=== PATIENT | male | born 1945 | race Caucasian/White ===

== ENCOUNTER 2018-06-30 10:18 | Inpatient (IN) | payer OTHER ==
[~2018-06-30] VITALS: Ht 170.2 cm; Wt 101.2 kg
[2018-07-04] MEDS ORDERED: COZAAR25 MG PO (10:32)
== END 2018-07-10 16:10 | disposition home or self-care (01) | DRG 394 ==
LOC: EDSTATUS 07-04 09:00 → ADM 07-04 09:00 → O/R 07-09 07:15 → SURG 07-09 07:15 → SURH 07-09 09:00 → SURG 07-09 13:02
PROVIDERS: ADMIT Colon & Rectal Surgery
PROC: 0DBP8ZZ Excision of Rectum, Via Natural or Artificial Opening Endoscopic (ICD-10-PCS; principal; 2018-07-09 09:15)
DX: K62.1 Rectal polyp (principal); C20 Malignant neoplasm of rectum; K92.1 Melena; I10 Essential (primary) hypertension

== ENCOUNTER → 2019-10-02 06:00 | Outpatient (CLI) | payer OTHER ==
[~2019-10-02 06:00] MED LIST: COZAAR25 MG PO
== END | disposition home or self-care (01) ==
LOC: ADM 09-28 12:15 → LAB 06:00 → ADM 12:15 → AMB-ENDOS 12:15 → EDSTATUS 12:15
PROVIDERS: ATTEND Colon & Rectal Surgery
DX: U07.1 COVID-19 (principal); C20 Malignant neoplasm of rectum; Z85.048 Personal history of other malignant neoplasm of rectum, rectosigmoid junction, and anus; Z86.010 Personal history of colon polyps; K92.1 Melena

== ENCOUNTER 2024-07-07 09:45 | Inpatient (IN) | payer OTHER ==
[~2024-07-07] VITALS: Ht 170.2 cm; Wt 102.1 kg
[2024-07-07] MEDS ORDERED: ENTRESTO 24 MG1 EACH PO (10:51)
[2024-07-07 10:52] VITALS: BP 170/77
[2024-07-07 11:21] VITALS: BP 153/69
[2024-07-15] MEDS ORDERED: HEMOSTATIC MATRIX 1 KIT KIT TOP ONE (06:55)
[2024-07-15] MEDS ORDERED: CEFTRIAXONE SODIUM 2,000 MG VIAL ONE (06:55)
[2024-07-15] MEDS ORDERED: DIBUCAINE 30 GM TUBE ONE (06:55)
[2024-07-15] MEDS ORDERED: LIDOCAINE HCL 1%/EPINEPHRINE 20ML VIAL IJ ONE (06:55)
[2024-07-15] MEDS ORDERED: POVIDONE-IODINE 118 ML BOTT TOP ONE (06:55)
[2024-07-15] MEDS ORDERED: METRONIDAZOLE/SODIUM CHLORIDE 500 MG/100 ML PIGGYBACK IV ONE (06:55)
[2024-07-15] MEDS ORDERED: BUPIVACAINE HCL/MPF 0.5% 30ML VIAL ONE (06:55)
[2024-07-15] MEDS ORDERED: OxyCODONE HCL 5 MG TABLET (ROXICODONE) PO PRN (09:15)
[2024-07-15] MEDS ORDERED: MORPHINE SULFATE 4 MG/ML CARTRIDGE IV PRN (09:15)
[2024-07-15] MEDS ORDERED: DEXTROSE 50 % IN WATER 0.5 G/ML VIAL IV PRN (09:15)
[2024-07-15] MEDS ORDERED: ONDANSETRON HCL 2 MG/ML VIAL IV PRN (09:15)
[2024-07-15] MEDS ORDERED: RINGERS SOLUTION,LACTATED 1,000 ML IV SCH (09:15)
[2024-07-15] MEDS ORDERED: ZOLPIDEM TARTRA10 MG (10:02)
[2024-07-15 10:52] LABS: BASO % 0.5 % (0.1-1.2); EOS # 0.07 (0.04-0.54); EOS % 1.2 % (0.7-7.0); HEMOGLOBIN 12.9 g/dL (13.7-17.5); LYMPH # 1.09 (1.18-3.74); LYMPH % 18.9 % (19.3-53.1); MEAN CORPUSCULAR HEMOGLOBIN 30.1 pg (25.6-32.2); MONO # 0.52 (0.24-0.82); NEUT # 4.03 (1.56-6.13); NEUT % 70.1 % (34.0-71.1); PLATELET COUNT 180 K/uL (163-369); RED BLOOD COUNT 4.29 M/uL (4.63-6.08); RED CELL DISTRIBUTION WIDTH 12.9 % (11.6-14.4)
[2024-07-15 12:11] VITALS: BP 153/69; O2SAT 95
[2024-07-15] MEDS ORDERED: HYOSCYAMINE SULFATE 0.125 MG TAB.SUBL SL SCH (13:00)
[2024-07-15] MEDS ORDERED: SIMETHICONE 125 MG CAPSULE PO SCH (13:00)
[2024-07-15] MEDS ORDERED: ACETAMINOPHEN 500 MG GEL..CAP PO SCH (14:00)
[2024-07-15 16:00] VITALS: BP 148/78; O2SAT 95
[2024-07-15] MEDS ORDERED: GABAPENTIN 300 MG CAPSULE PO SCH (17:00)
[2024-07-15] MEDS ORDERED: POLYETHYLENE GLYCOL 3350 17 GM BLIST.PACK PO SCH (17:00)
[2024-07-15] MEDS ORDERED: CELECOXIB 200 MG CAPSULE PO SCH (17:00)
[2024-07-15] MEDS ORDERED: METOCLOPRAMIDE HCL 5 MG/ML VIAL IV SCH (17:00)
[2024-07-15] MEDS ORDERED: FAMOTIDINE/PF 20 MG/2 ML VIAL IV PUSH SCH (21:00)
[2024-07-15 23:41] VITALS: BP 149/72; O2SAT 100
[2024-07-16 06:49] LABS: ALBUMIN 3.1 gm/dL (3.4-5.0); CALCIUM 8.7 mg/dL (8.5-10.1); CREATININE SERUM 0.87 mg/dL (0.70-1.30); GFR 84.65; MAGNESIUM 2.1 mg/dL (1.8-2.4); PHOSPHOROUS 3.9 mg/dL (2.5-4.9); POTASSIUM 4.66 mEq/L (3.5-5.1)
[2024-07-16 06:58] LABS: BASO % 0.4 % (0.1-1.2); EOS # 0.05 (0.04-0.54); EOS % 0.6 % (0.7-7.0); HEMATOCRIT 41.1 % (40.1-51.0); HEMOGLOBIN 13.5 g/dL (13.7-17.5); LYMPH # 0.93 (1.18-3.74); LYMPH % 10.2 % (19.3-53.1); MEAN CORPUSCULAR HEMOGLOBIN 31.3 pg (25.6-32.2); MONO % 9.9 % (4.7-12.5); NEUT # 7.15 (1.56-6.13); NEUT % 78.7 % (34.0-71.1); PLATELET COUNT 187 K/uL (163-369); RED BLOOD COUNT 4.32 M/uL (4.63-6.08); RED CELL DISTRIBUTION WIDTH 12.9 % (11.6-14.4)
[2024-07-16 08:00] VITALS: BP 144/69; O2SAT 94
[2024-07-16] MEDS ORDERED: LACTULOSE 20 G/30 ML BLIST.PACK PO SCH (09:00)
[2024-07-16] MEDS ORDERED: LACTOBACILLUS ACIDOPHILUS 1 CAP CAP PO SCH (09:00)
[2024-07-16 16:23] VITALS: BP 139/67; O2SAT 95
[2024-07-16] MEDS ORDERED: ENOXAPARIN SODIUM 40 MG/0.4 ML SYRINGE SUBCUTANEO SCH (17:00)
[2024-07-17] MEDS ORDERED: ENOXAPARIN SODIUM 40 MG/0.4 ML SYRINGE SUBCUTANEO SCH (09:00)
== END 2024-07-16 18:23 | disposition home or self-care (01) | DRG 376 ==
LOC: SURG 07-15 05:38 → O/R 07-15 05:38 → SURH 07-15 09:45 → SURG 07-15 11:31
PROVIDERS: ADMIT Colon & Rectal Surgery; ATTEND Colon & Rectal Surgery
PROC: 0DBP8ZZ Excision of Rectum, Via Natural or Artificial Opening Endoscopic (ICD-10-PCS; principal; 2024-07-15 11:00)
DX: C20 Malignant neoplasm of rectum (principal)
CPT/HCPCS: 0184T; 45123

== ENCOUNTER 2024-11-25 11:45 | Inpatient (IN) | payer OTHER ==
[~2024-11-25] VITALS: Ht 170.2 cm; Wt 98.4 kg
[~2024-11-25 11:45] MED LIST changes: +ENTRESTO 24 MG1 EACH PO; +ZOLPIDEM TARTRA10 MG
[2024-11-27] MEDS ORDERED: COZAAR100 MG PO (13:02)
[2024-12-01] MEDS ORDERED: BUPIVACAINE HCL/MPF 0.5% 30ML VIAL ONE (12:35)
[2024-12-01] MEDS ORDERED: LIDOCAINE HCL 1%/EPINEPHRINE 20ML VIAL IJ ONE (12:35)
[2024-12-01] MEDS ORDERED: CEFTRIAXONE SODIUM 2,000 MG VIAL ONE (12:45)
[2024-12-01] MEDS ORDERED: METRONIDAZOLE/SODIUM CHLORIDE 500 MG/100 ML PIGGYBACK IV ONE (12:45)
[2024-12-01] MEDS ORDERED: POVIDONE-IODINE 118 ML BOTT TOP ONE (15:16)
[2024-12-01] MEDS ORDERED: OxyCODONE HCL 5 MG TABLET (ROXICODONE) PO PRN (17:15)
[2024-12-01] MEDS ORDERED: MORPHINE SULFATE 4 MG/ML CARTRIDGE IV PRN (17:15)
[2024-12-01] MEDS ORDERED: ONDANSETRON HCL 2 MG/ML VIAL IV PRN (17:15)
[2024-12-01] MEDS ORDERED: RINGERS SOLUTION,LACTATED 1,000 ML IV SCH (17:15)
[2024-12-01] MEDS ORDERED: DEXTROSE 50 % IN WATER 0.5 G/ML DISP.SYRIN IV PRN ×2 (17:15→18:00)
[2024-12-01] MEDS ORDERED: THROMBIN,HU/FIBRINOGEN/CALCIUM 10 ML SYRINGE TOP ONE (17:35)
[2024-12-01] MEDS ORDERED: LABETALOL HCL 20MG/4ML SYRINGE IV STA (17:50)
[2024-12-01] MEDS ORDERED: ENALAPRILAT DIHYDRATE 1.25 MG/ML VIAL IV PRN (18:00)
[2024-12-01] MEDS ORDERED: INSULIN LISPRO 1,000 UNIT/10 ML UNITS SUBCUTANEO PRN (18:00)
[2024-12-01] MEDS ORDERED: SUGAMMADEX SODIUM 200 MG/2 ML VIAL IV ONE (18:16)
[2024-12-01] MEDS ORDERED: ACETAMINOPHEN 500 MG GEL..CAP PO SCH (20:00)
[2024-12-01] MEDS ORDERED: ONDANSETRON HCL 2 MG/ML VIAL ONE (20:17)
[2024-12-01] MEDS ORDERED: FAMOTIDINE/PF 20 MG/2 ML VIAL ONE (20:18)
[2024-12-01] MEDS ORDERED: CIPROFLOXACIN IN 5 % DEXTROSE 400 MG/200 ML PIGGYBAG IV ONE (20:18)
[2024-12-01] MEDS ORDERED: ONDANSETRON HCL 2 MG/ML VIAL IV ONE (20:30)
[2024-12-01] MEDS ORDERED: SIMETHICONE 125 MG CAPSULE PO SCH (21:00)
[2024-12-01] MEDS ORDERED: FAMOTIDINE/PF 20 MG/2 ML VIAL IV PUSH SCH (21:00)
[2024-12-01] MEDS ORDERED: CARBIDOPA/LEVODOPA 25/250 TABLET PO SCH (21:00)
[2024-12-01] MEDS ORDERED: CIPROFLOXACIN IN 5 % DEXTROSE 400 MG/200 ML PIGGYBAG IV SCH (21:00)
[2024-12-01 21:58] LABS: BASO % 0.2 % (0.1-1.2); EOS # 0.00 (0.04-0.54); EOS % 0.0 % (0.7-7.0); LYMPH # 0.51 (1.18-3.74); LYMPH % 9.2 % (19.3-53.1); MEAN PLATELET VOLUME 9.50 fl (9.4-12.4); MONO # 0.38 (0.24-0.82); MONO % 6.8 % (4.7-12.5); NEUT # 4.66 (1.56-6.13); NEUT % 83.6 % (34.0-71.1); RED CELL DISTRIBUTION WIDTH 13.1 % (11.6-14.4)
[2024-12-01 22:24] LABS: BUN CREA RATIO 13.0 (7.0-25.0); CREATININE SERUM 1.34 mg/dL (0.70-1.30); GFR 51.29; GLUCOSE FASTING 159.0 mg/dL (65-100); OSMOLALITY SERUM 282.0 MOSM/KG (275-295)
[2024-12-02 00:26] VITALS: BP 146/74; O2SAT 98
[2024-12-02] MEDS ORDERED: METRONIDAZOLE/SODIUM CHLORIDE 500 MG/100 ML PIGGYBACK IV SCH (01:00)
[2024-12-02] MEDS ORDERED: GABAPENTIN 300 MG CAPSULE PO SCH (01:00)
[2024-12-02] MEDS ORDERED: METOCLOPRAMIDE HCL 5 MG/ML VIAL IV SCH (01:00)
[2024-12-02] MEDS ORDERED: CELECOXIB 200 MG CAPSULE PO SCH (05:00)
[2024-12-02 06:53] LABS: BASO % 0.3 % (0.1-1.2); EOS # 0.00 (0.04-0.54); EOS % 0.0 % (0.7-7.0); LYMPH # 0.29 (1.18-3.74); LYMPH % 4.3 % (19.3-53.1); MEAN PLATELET VOLUME 9.80 fl (9.4-12.4); MONO # 0.48 (0.24-0.82); MONO % 7.0 % (4.7-12.5); NEUT # 6.00 (1.56-6.13); NEUT % 88.0 % (34.0-71.1); RED CELL DISTRIBUTION WIDTH 13.2 % (11.6-14.4)
[2024-12-02 07:25] LABS: BUN CREA RATIO 14.0 (7.0-25.0); CREATININE SERUM 1.51 mg/dL (0.70-1.30); GFR 44.68; GLUCOSE FASTING 134.0 mg/dL (65-100); OSMOLALITY SERUM 281.0 MOSM/KG (275-295)
[2024-12-02 07:30] VITALS: BP 119/65; O2SAT 92; O2SAT 95
[2024-12-02] MEDS ORDERED: HYOSCYAMINE SULFATE 0.125 MG TAB.SUBL SL SCH (09:00)
[2024-12-02] MEDS ORDERED: LACTULOSE 20 G/30 ML BLIST.PACK PO SCH (09:00)
[2024-12-02] MEDS ORDERED: LOSARTAN/HYDROCHLOROTHIAZIDE 1 TAB TABLET PO SCH (09:00)
[2024-12-02] MEDS ORDERED: LACTOBACILLUS ACIDOPHILUS 1 CAP CAP PO SCH (09:00)
[2024-12-02] MEDS ORDERED: METOPROLOL SUCCINATE 50 MG TAB.SR.24H PO SCH (09:00)
[2024-12-02 16:59] VITALS: BP 113/67; O2SAT 94
[2024-12-02] MEDS ORDERED: ENOXAPARIN SODIUM 40 MG/0.4 ML SYRINGE SUBCUTANEO SCH (17:00)
[2024-12-02] MEDS ORDERED: ROSUVASTATIN CALCIUM 10 MG TABLET PO SCH (17:00)
[2024-12-03 01:24] VITALS: BP 129/70; O2SAT 95
[2024-12-03 07:11] LABS: BASO % 0.1 % (0.1-1.2); EOS # 0.01 (0.04-0.54); EOS % 0.1 % (0.7-7.0); LYMPH # 0.66 (1.18-3.74); LYMPH % 5.2 % (19.3-53.1); MEAN PLATELET VOLUME 9.90 fl (9.4-12.4); MONO # 0.65 (0.24-0.82); MONO % 5.1 % (4.7-12.5); NEUT # 11.26 (1.56-6.13); NEUT % 89.0 % (34.0-71.1); RED CELL DISTRIBUTION WIDTH 13.5 % (11.6-14.4)
[2024-12-03 07:56] LABS: BUN CREA RATIO 14.0 (7.0-25.0); CREATININE SERUM 2.22 mg/dL (0.70-1.30); GFR 28.64; GLUCOSE FASTING 103.0 mg/dL (65-100); OSMOLALITY SERUM 281.0 MOSM/KG (275-295)
[2024-12-03] MEDS ORDERED: ENOXAPARIN SODIUM 40 MG/0.4 ML SYRINGE SUBCUTANEO SCH (09:00)
[2024-12-03 10:18] VITALS: BP 112/70; O2SAT 95
[2024-12-03] MEDS ORDERED: 0.9 % SODIUM CHLORIDE 500 ML IV SCH (11:00)
[2024-12-03 15:19] LABS: URINE APPEARANCE Cloudy; URINE BILIRRUBIN Negative (NEGATIVE); URINE BLOOD Large; URINE COLOR Dark Yellow; URINE GLUCOSE Negative (NEGATIVE); URINE KETONE Negative (NEGATIVE); URINE LEUKOCYTE Small; URINE NITRATE Negative; URINE UROBILINOGEN 1.0 E.U./dl
[2024-12-03 15:20] LABS: URINE BACTERIA 559.1 uL (0.0-1933); URINE CAST 2.49 uL (0.0-1.40); URINE EPITHELIAL CELLS 8.4 uL (0.0-38.8); URINE RBC 3132.4 uL (0.0-20.8); URINE WBC 119.8 uL (0.0-23.2)
[2024-12-03 15:38] LABS: URINE PROTEIN 100 (NEGATIVE)
[2024-12-03 16:00] VITALS: BP 123/76; O2SAT 96
[2024-12-03 17:32] LABS: CREATININE URINE RANDOM 218.0 MG/DL (30-125); NA URINE RANDOM 7.0 mmol/L (20-110)
[2024-12-04 01:01] VITALS: BP 121/74; O2SAT 94
[2024-12-04 06:55] LABS: BASO % 0.3 % (0.1-1.2); EOS # 0.00 (0.04-0.54); EOS % 0.0 % (0.7-7.0); LYMPH # 0.32 (1.18-3.74); LYMPH % 3.4 % (19.3-53.1); MEAN PLATELET VOLUME 10.00 fl (9.4-12.4); MONO # 0.40 (0.24-0.82); MONO % 4.2 % (4.7-12.5); NEUT # 8.72 (1.56-6.13); NEUT % 91.6 % (34.0-71.1); RED CELL DISTRIBUTION WIDTH 13.9 % (11.6-14.4)
[2024-12-04 07:21] LABS: BUN CREA RATIO 18.0 (7.0-25.0); CREATININE SERUM 2.15 mg/dL (0.70-1.30); GFR 29.72; GLUCOSE FASTING 131.0 mg/dL (65-100); OSMOLALITY SERUM 285.0 MOSM/KG (275-295)
[2024-12-04 07:51] LABS: BAND MAN 17.0 %; LYMPHOCYTE MAN 4.0 %; MONOCYTE MAN 1.0 %
[2024-12-04 07:53] LABS: NEUTROPHILS MAN 78.0 %
[2024-12-04 08:00] VITALS: BP 152/78; O2SAT 90
[2024-12-04 16:00] VITALS: BP 119/74; O2SAT 90
[2024-12-05 00:30] VITALS: BP 133/79; O2SAT 96
[2024-12-05 08:09] LABS: BASO % 0.8 % (0.1-1.2); EOS # 0.37 (0.04-0.54); EOS % 2.8 % (0.7-7.0); LYMPH # 0.56 (1.18-3.74); LYMPH % 4.3 % (19.3-53.1); MEAN PLATELET VOLUME 10.30 fl (9.4-12.4); MONO # 0.92 (0.24-0.82); MONO % 7.0 % (4.7-12.5); NEUT # 11.04 (1.56-6.13); NEUT % 84.2 % (34.0-71.1); RED CELL DISTRIBUTION WIDTH 14.4 % (11.6-14.4)
[2024-12-05 08:25] VITALS: BP 148/70; O2SAT 95
[2024-12-05 08:43] LABS: BUN CREA RATIO 26.0 (7.0-25.0); CREATININE SERUM 1.66 mg/dL (0.70-1.30); GFR 40.06; GLUCOSE FASTING 95.0 mg/dL (65-100); OSMOLALITY SERUM 286.0 MOSM/KG (275-295)
[2024-12-05 16:46] VITALS: BP 133/67; O2SAT 95
[2024-12-06 01:15] VITALS: BP 130/81; O2SAT 96
[2024-12-06 07:56] LABS: BASO % 0.5 % (0.1-1.2); BUN CREA RATIO 31.0 (7.0-25.0); CREATININE SERUM 1.1 mg/dL (0.70-1.30); EOS # 0.34 (0.04-0.54); EOS % 2.7 % (0.7-7.0); GFR 64.41; GLUCOSE FASTING 84.0 mg/dL (65-100); LYMPH # 0.59 (1.18-3.74); LYMPH % 4.7 % (19.3-53.1); MEAN PLATELET VOLUME 9.90 fl (9.4-12.4); MONO # 1.25 (0.24-0.82); MONO % 10.0 % (4.7-12.5); NEUT # 9.65 (1.56-6.13); NEUT % 77.1 % (34.0-71.1); OSMOLALITY SERUM 288.0 MOSM/KG (275-295); RED CELL DISTRIBUTION WIDTH 14.2 % (11.6-14.4)
[2024-12-06 08:31] VITALS: BP 157/84; O2SAT 96
[2024-12-06 09:11] LABS: BAND MAN 2.0 %; EOSINOPHIL MAN 4.0 %; LYMPHOCYTE MAN 6.0 %; METAMYELOCYTE 3.0 %; MONOCYTE MAN 10.0 %; MYELOCYTE 1.0 %; NEUTROPHILS MAN 74.0 %
[2024-12-06] MEDS ORDERED: ACETAMINOPHEN 500 MG GEL..CAP PO PRN (11:30)
[2024-12-06 16:00] VITALS: BP 138/82; O2SAT 94
[2024-12-07 01:01] VITALS: BP 143/82; O2SAT 96
[2024-12-07 06:45] LABS: BASO % 0.7 % (0.1-1.2); EOS # 0.30 (0.04-0.54); EOS % 2.6 % (0.7-7.0); LYMPH # 0.79 (1.18-3.74); LYMPH % 6.7 % (19.3-53.1); MEAN PLATELET VOLUME 9.50 fl (9.4-12.4); MONO # 1.31 (0.24-0.82); MONO % 11.1 % (4.7-12.5); NEUT # 7.83 (1.56-6.13); NEUT % 66.6 % (34.0-71.1); RED CELL DISTRIBUTION WIDTH 14.2 % (11.6-14.4)
[2024-12-07 07:41] LABS: BAND MAN 38.0 %; LYMPHOCYTE MAN 13.0 %; MONOCYTE MAN 13.0 %; NEUTROPHILS MAN 32.0 %
[2024-12-07 07:42] LABS: EOSINOPHIL MAN 2.0 %
[2024-12-07 08:45] VITALS: BP 157/77; O2SAT 97
[2024-12-07] MEDS ORDERED: AMINO ACIDS 1 EACH TABLET PO SCH (17:00)
[2024-12-07 18:12] LABS: URINE APPEARANCE Clear; URINE BILIRRUBIN Negative (NEGATIVE); URINE BLOOD Trace; URINE COLOR Dark Yellow; URINE GLUCOSE Negative (NEGATIVE); URINE LEUKOCYTE Small; URINE NITRATE Negative; URINE UROBILINOGEN 0.2 E.U./dl
[2024-12-07 18:15] VITALS: BP 163/75; O2SAT 99
[2024-12-07 18:16] LABS: URINE BACTERIA 182.4 uL (0.0-1933); URINE CAST 1.46 uL (0.0-1.40); URINE EPITHELIAL CELLS 17.0 uL (0.0-38.8); URINE RBC 21.7 uL (0.0-20.8); URINE WBC 33.0 uL (0.0-23.2)
[2024-12-07 18:26] LABS: URINE KETONE 40 (NEGATIVE); URINE PROTEIN 100 (NEGATIVE)
[2024-12-07] MEDS ORDERED: ONDANSETRON HCL 2 MG/ML VIAL IV PRN (20:30)
[2024-12-08 00:12] VITALS: BP 162/83; O2SAT 94
[2024-12-08] MEDS ORDERED: PIPERACILLIN/TAZOBACTAM SODIUM 2.25 GM VIAL IV SCH (09:00)
[2024-12-08 15:55] VITALS: BP 157/78; O2SAT 97
[2024-12-08] MEDS ORDERED: levoFLOXacin IN DEXTROSE 5 % 150 ML IV NR (19:00)
[2024-12-08] MEDS ORDERED: CEFEPIME HCL 2,000 MG VIAL IV SCH (21:00)
[2024-12-09 01:52] VITALS: BP 136/81; O2SAT 96
[2024-12-09 08:00] VITALS: BP 160/70; O2SAT 98
[2024-12-09 08:27] LABS: BASO % 0.6 % (0.1-1.2); EOS # 0.12 (0.04-0.54); EOS % 0.8 % (0.7-7.0); LYMPH # 1.18 (1.18-3.74); LYMPH % 7.4 % (19.3-53.1); MEAN PLATELET VOLUME 9.10 fl (9.4-12.4); MONO # 1.30 (0.24-0.82); MONO % 8.1 % (4.7-12.5); NEUT # 11.25 (1.56-6.13); NEUT % 70.5 % (34.0-71.1); RED CELL DISTRIBUTION WIDTH 14.2 % (11.6-14.4)
[2024-12-09 08:41] LABS: ALT/SGPT 28.0 U/L (12-78); AST/SGOT 30.0 U/L (15-37); BILIRUBIN TOTAL 0.56 mg/dL (0.3-1.2); BUN CREA RATIO 14.0 (7.0-25.0); CREATININE SERUM 1.05 mg/dL (0.70-1.30); GFR 67.96; GLOBULINA 4.0 G/DL (2.4-3.5); GLUCOSE FASTING 117.0 mg/dL (65-100); OSMOLALITY SERUM 285.0 MOSM/KG (275-295)
[2024-12-09 09:46] LABS: BAND MAN 33.0 %; LYMPHOCYTE MAN 14.0 %; METAMYELOCYTE 4.0 %; MONOCYTE MAN 1.0 %; MYELOCYTE 3.0 %; NEUTROPHILS MAN 45.0 %
[2024-12-09] MEDS ORDERED: levoFLOXacin IN DEXTROSE 5 % 150 ML IV SCH (17:00)
== END 2024-12-09 11:16 | disposition home or self-care (01) | DRG 329 ==
LOC: O/R 12-01 10:00 → SURG 12-01 10:00 → SURH 12-01 10:00 → SURG 12-01 21:54 → O/R 12-02 09:30 → SURG 12-02 09:33 → SURH 12-02 15:44
PROVIDERS: Internal Medicine; Internal Medicine Infectious Disease; Surgery; ADMIT Colon & Rectal Surgery; ATTEND Colon & Rectal Surgery
PROC: 0DTP4ZZ Resection of Rectum, Percutaneous Endoscopic Approach (ICD-10-PCS; 2024-12-01)
PROC: 0DBQ4ZZ Excision of Anus, Percutaneous Endoscopic Approach (ICD-10-PCS; 2024-12-01)
PROC: 07BC4ZZ Excision of Pelvis Lymphatic, Percutaneous Endoscopic Approach (ICD-10-PCS; 2024-12-01)
PROC: 0D1N4Z4 Bypass Sigmoid Colon to Cutaneous, Percutaneous Endoscopic Approach (ICD-10-PCS; 2024-12-01)
PROC: 0DTN4ZZ Resection of Sigmoid Colon, Percutaneous Endoscopic Approach (ICD-10-PCS; principal; 2024-12-01 13:45)
PROC: BW40ZZZ Ultrasonography of Abdomen (ICD-10-PCS; 2024-12-03)
PROC: 02HV33Z Insertion of Infusion Device into Superior Vena Cava, Percutaneous Approach (ICD-10-PCS; 2024-12-07)
PROC: 4A033R1 Measurement of Arterial Saturation, Peripheral, Percutaneous Approach (ICD-10-PCS; 2024-12-07)
PROC: BB24ZZZ Computerized Tomography (CT Scan) of Bilateral Lungs (ICD-10-PCS; 2024-12-08)
PROC: B246ZZZ Ultrasonography of Right and Left Heart (ICD-10-PCS; 2024-12-08)
DX: C19 Malignant neoplasm of rectosigmoid junction (principal); J18.9 Pneumonia, unspecified organism; I25.810 Atherosclerosis of coronary artery bypass graft(s) without angina pectoris; N17.9 Acute kidney failure, unspecified; J95.89 Other postprocedural complications and disorders of respiratory system, not elsewhere classified; Z86.0100 Personal history of colon polyps, unspecified; Z85.048 Personal history of other malignant neoplasm of rectum, rectosigmoid junction, and anus; I25.10 Atherosclerotic heart disease of native coronary artery without angina pectoris; R09.02 Hypoxemia